=== PATIENT | female | born 2000 | race Caucasian/White ===

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

== ENCOUNTER → 2018-02-12 | Outpatient (CLI) | payer OTHER ==
[2018-02-12 08:36] LABS: HEMATOCRIT 34.1 % (36.0-47.0); HEMOGLOBIN 11.3 g/dl (12.0-15.5); MEAN CORPUSCULAR HEMOGLOBIN 31.2 pg (27.0-33.0); MEAN CORPUSCULAR HGB CONC 33.1 g/dl (32.0-36.5); MEAN CORPUSCULAR VOLUME 94.2 fl (80.0-96.0); PLATELET COUNT, AUTOMATED 365 10^3/uL (150-450); RED BLOOD COUNT 3.62 10^6/uL (4.00-5.40); RED CELL DISTRIBUTION WIDTH 12.9 % (11.5-14.5); WHITE BLOOD COUNT 11.8 10^3/uL (4.0-10.0)
[2018-02-12 08:59] LABS: GLUCOSE CHALLENGE TEST 1 HOUR 124 MG/DL (LESS THAN 140)
== END ==
LOC: M LAB 07:06
DX: Z34.82 Encounter for supervision of other normal pregnancy, second trimester (principal); Z36.89 Encounter for other specified antenatal screening

== ENCOUNTER 2018-03-10 18:24 | Outpatient (CLI) | payer OTHER ==
[2018-03-10 20:36] LABS: APPEARANCE, URINE HAZY (CLEAR); BACTERIA, URINE AUTO NEGATIVE (NEGATIVE); BILIRUBIN, URINE AUTO NEGATIVE (NEGATIVE); BLOOD, URINE BLOOD NEGATIVE (NEGATIVE); COLOR, URINE YELLOW (YELLOW); GLUCOSE, URINE (UA) AUTO NEGATIVE (NEGATIVE); KETONE, URINE AUTO 1+ mg/dL (NEGATIVE); LEUKOCYTE ESTERASE, URINE AUTO NEGATIVE (NEGATIVE); MUCUS, URINE SMALL (NEGATIVE); NITRITE, URINE AUTO NEGATIVE (NEGATIVE); PROTEIN, URINE AUTO 1+ mg/dL (NEGATIVE); RBC, URINE AUTO 2 /HPF (0-3); SPECIFIC GRAVITY URINE AUTO 1.026 (1.002-1.035); SQUAMOUS EPITHELIAL CELL UR AU 6 /HPF (0-6); WBC, URINE AUTO 2 /HPF (0-3)
[2018-03-10] MEDS: ONDANSETRON 4MG/2ML VIAL (J2405) IV (21:06)
== END 2018-03-10 21:20 | disposition home or self-care (01) ==
LOC: M LDO 18:24
DX: O26.893 Other specified pregnancy related conditions, third trimester (principal); R51 Headache; O21.8 Other vomiting complicating pregnancy; Z3A.32 32 weeks gestation of pregnancy
CPT/HCPCS: J2405

== ENCOUNTER → 2018-04-08 | Outpatient (REF) | payer OTHER | LOC: M LAB REF 17:33 | DX: Z34.03 Encounter for supervision of normal first pregnancy, third trimester (principal); Z36.85 Encounter for antenatal screening for Streptococcus B | CPT/HCPCS: 87081 ==

== ENCOUNTER 2018-05-06 18:16 | Inpatient (IN) | payer OTHER ==
[2018-05-06] MEDS: LR 1,000 ML IV (18:22)
[2018-05-06] MEDS ORDERED: OXYTOCIN DRIP 30 UNITS in APPROPRIATE DILUENT 1 EA IV (18:30)
[2018-05-06 19:30] LABS: HEMATOCRIT 32.6 % (36.0-47.0); HEMOGLOBIN 11.1 g/dl (12.0-15.5); MEAN CORPUSCULAR HEMOGLOBIN 30.4 pg (27.0-33.0); MEAN CORPUSCULAR VOLUME 89.3 fl (80.0-96.0); PLATELET COUNT, AUTOMATED 348 10^3/uL (150-450); RED BLOOD COUNT 3.65 10^6/uL (4.00-5.40); WHITE BLOOD COUNT 12.6 10^3/uL (4.0-10.0)
[2018-05-07] MEDS ORDERED: PROMETHAZINE INJ 25 MG/ML VIAL (J2550) As Ordered (00:16)
[2018-05-07] MEDS ORDERED: BUTORPHANOL 2 MG/ML INJ (J0595) As Ordered (00:16)
[2018-05-07] MEDS: PROMETHAZINE INJ 25 MG/ML VIAL (J2550) IV (00:35)
[2018-05-07] MEDS: BUTORPHANOL 2 MG/ML INJ (J0595) IV (00:38)
[2018-05-07] MEDS ORDERED: FENTANYL 2MCG/ML ROPIVACAINE 0.2% IN 0.9% NACL 200ML IVBAG As Ordered (03:28)
[2018-05-07] MEDS: FENTANYL/ROPIVACAINE/NACL BAG 200 ML EPIDURAL (05:45)
[2018-05-07] MEDS ORDERED: ONDANSETRON 4MG/2ML VIAL (J2405) IV (05:45)
[2018-05-07] MEDS ORDERED: NALOXONE INJ 0.4 MG/1 ML VIAL (J2310) IV (05:45)
[2018-05-07] MEDS ORDERED: ePHEDrine SULFATE 25 MG/5 ML(5MG/ML) SYRINGE IV (05:45)
[2018-05-07] MEDS ORDERED: EPIDURAL COMMENT XX (05:45)
[2018-05-07] MEDS ORDERED: REFRIGERATOR IV KEYS XX (05:45)
[2018-05-07] MEDS ORDERED: EPIDURAL/PCA KEYS XX (05:45)
[2018-05-07] MEDS ORDERED: LACTATED RINGER'S 1000 ML IV (05:45)
[2018-05-07] MEDS ORDERED: diphenhydrAMINE INJ 50MG/ML VIAL (J1200) IV (05:45)
[2018-05-07] MEDS ORDERED: OXYTOCIN DRIP 30 UNITS in APPROPRIATE DILUENT 1 EA IV (13:21)
[2018-05-07] MEDS ORDERED: MEASLES,MUMPS,RUBELLA VACCINE INJ (MMR-II) (90707) SC (13:30)
[2018-05-07] MEDS ORDERED: DOCUSATE SODIUM 100 MG CAP PO (13:30)
[2018-05-07] MEDS ORDERED: ACETAMINOPHEN 500 MG TAB PO (13:30)
[2018-05-07] MEDS ORDERED: RHOGAM 300 MCG (1500 IU) INJ (J2790) IM (13:30)
[2018-05-07] MEDS ORDERED: ANUSOL HC CREAM 30GM TOP ×2 (13:30→13:45)
[2018-05-07] MEDS ORDERED: DIBUCAINE 1% OINTMENT 30GM TOP ×2 (13:30→13:45)
[2018-05-07] MEDS ORDERED: METHYLERGONOVINE MALEATE 0.2 MG TAB PO ×2 (13:30→13:45)
[2018-05-07] MEDS: OXYTOCIN DRIP 30 UNITS in APPROPRIATE DILUENT 1 EA IV (13:50)
[2018-05-07] MEDS: RHOGAM 300 MCG (1500 IU) INJ (J2790) IM (15:28)
[2018-05-08] MEDS: PRENATAL VITAMINS CHEWABLE TABLET PO (08:27)
[2018-05-08] MEDS: ADACEL/BOOSTRIX VACCINE (DIPHTH/PERTUSS/ACELL/TETANUS)0.5ML SYR (90715) IM (08:28)
[2018-05-08] MEDS: INFLUENZA QUADRIVALENT PF VACCINE 0.5ML SYRINGE (90686) IM (08:29)
[2018-05-08] MEDS ORDERED: PRENATAL VITAMINS CHEWABLE TABLET PO (09:00)
[2018-05-08] MEDS: ACETAMINOPHEN 500 MG TAB PO (19:48)
[2018-05-08] MEDS: DOCUSATE SODIUM 100 MG CAP PO (19:48)
[2018-05-09] MEDS: PRENATAL VITAMINS CHEWABLE TABLET PO (09:08)
[2018-05-09] MEDS: MEASLES,MUMPS,RUBELLA VACCINE INJ (MMR-II) (90707) SC (17:17)
== END 2018-05-09 17:35 | disposition home or self-care (01) | DRG 775 ==
LOC: M LDI 18:16 → M OBS 05-07 15:09
PROVIDERS: Advanced Practice Midwife
PROC: 3E033VJ Introduction of Other Hormone into Peripheral Vein, Percutaneous Approach (ICD-10-PCS; 2018-05-06)
PROC: 10907ZC Drainage of Amniotic Fluid, Therapeutic from Products of Conception, Via Natural or Artificial Opening (ICD-10-PCS; 2018-05-06)
PROC: 10E0XZZ Delivery of Products of Conception, External Approach (ICD-10-PCS; principal; 2018-05-07)
PROC: 0HQ9XZZ Repair Perineum Skin, External Approach (ICD-10-PCS; 2018-05-07)
DX: O48.0 Post-term pregnancy (principal); Z37.0 Single live birth; Z3A.40 40 weeks gestation of pregnancy; Z88.6 Allergy status to analgesic agent; Z88.8 Allergy status to other drugs, medicaments and biological substances; O77.0 Labor and delivery complicated by meconium in amniotic fluid; O70.0 First degree perineal laceration during delivery; O32.6XX0 Maternal care for compound presentation, not applicable or unspecified

== ENCOUNTER 2019-03-13 14:21 | Emergency (ER) | payer OTHER ==
[~2019-03-13] VITALS: Ht 160 cm; Wt 69.4 kg
[2019-03-13 14:21] VITALS: BP 110/68
[~2019-03-13 14:21] MED LIST: AMOX500C PO; BENA25CA4 PO; COLA100C5 PO; MAPA500T2 PO; PRENTAB9 PO; TESS100C PO
[2019-03-13 15:12] LABS: HEMATOCRIT 37.9 % (36.0-47.0); HEMOGLOBIN 12.7 g/dl (12.0-15.5); MEAN CORPUSCULAR HGB CONC 33.5 g/dl (32.0-36.5); MEAN CORPUSCULAR VOLUME 89.6 fl (80.0-96.0); PLATELET COUNT, AUTOMATED 419 10^3/uL (150-450); RED BLOOD COUNT 4.23 10^6/uL (4.00-5.40); WHITE BLOOD COUNT 9.5 10^3/uL (4.0-10.0)
[2019-03-13 15:32] LABS: AMPHETAMINES LEVEL URINE NEGATIVE (NEGATIVE); BARBITURATES URINE NEGATIVE (NEGATIVE); BENZODIAZEPINES URINE NEGATIVE (NEGATIVE); CANNABINOIDS URINE NEGATIVE (NEGATIVE); COCAINE METABOLITE URINE NEGATIVE (NEGATIVE); METHADONE URINE NEGATIVE (NEGATIVE); OPIATES URINE NEGATIVE (NEGATIVE); PHENCYCLIDINE URINE NEGATIVE (NEGATIVE)
[2019-03-13 15:33] LABS: HCG, SERUM QUALITATIVE NEGATIVE (NEGATIVE)
[2019-03-13 15:43] LABS: ACETAMINOPHEN LEVEL < 2.0 UG/ML (10.0-30.0); ALBUMIN 3.3 GM/DL (3.2-5.2); ALT/SGPT 19 U/L (12-78); BILIRUBIN,DIRECT 0.1 MG/DL (0.0-0.2); BILIRUBIN,TOTAL 0.2 MG/DL (0.2-1.0); BLOOD UREA NITROGEN 16 MG/DL (7-18); CARBON DIOXIDE LEVEL 29 MEQ/L (21-32); CHLORIDE LEVEL 108 MEQ/L (98-107); CREATININE FOR GFR 0.86 MG/DL (0.55-1.30); ETHYL ALCOHOL (ETHANOL) < 0.003 % (0.000-0.010); GLUCOSE, FASTING 76 MG/DL (70-100); POTASSIUM SERUM 3.9 MEQ/L (3.5-5.1); SALICYLATE LEVEL < 1.7 MG/DL (5.0-30.0); SODIUM LEVEL 142 MEQ/L (136-145); TOTAL PROTEIN 7.3 GM/DL (6.4-8.2)
== END 2019-03-13 17:29 | disposition home or self-care (01) ==
LOC: M ED 14:21
DX: F33.9 Major depressive disorder, recurrent, unspecified (principal); F43.20 Adjustment disorder, unspecified; J45.909 Unspecified asthma, uncomplicated; Z79.899 Other long term (current) drug therapy; Z88.8 Allergy status to other drugs, medicaments and biological substances
CPT/HCPCS: 36415; 80048; 80076; 80307; 84443; 84703; 85027; 99284; G0480

== ENCOUNTER 2019-03-14 19:32 | Inpatient (IN) | payer OTHER ==
[~2019-03-14] VITALS: Ht 162.6 cm; Wt 69.5 kg
[2019-03-14 20:15] LABS: HEMATOCRIT 39.9 % (36.0-47.0); HEMOGLOBIN 13.3 g/dl (12.0-15.5); MEAN CORPUSCULAR HGB CONC 33.3 g/dl (32.0-36.5); MEAN CORPUSCULAR VOLUME 89.9 fl (80.0-96.0); PLATELET COUNT, AUTOMATED 448 10^3/uL (150-450); RED BLOOD COUNT 4.44 10^6/uL (4.00-5.40); WHITE BLOOD COUNT 9.9 10^3/uL (4.0-10.0)
[2019-03-14 20:33] LABS: HCG, SERUM QUALITATIVE NEGATIVE (NEGATIVE)
[2019-03-14 20:37] LABS: AMPHETAMINES LEVEL URINE NEGATIVE (NEGATIVE); BARBITURATES URINE NEGATIVE (NEGATIVE); BENZODIAZEPINES URINE NEGATIVE (NEGATIVE); CANNABINOIDS URINE NEGATIVE (NEGATIVE); COCAINE METABOLITE URINE NEGATIVE (NEGATIVE); METHADONE URINE NEGATIVE (NEGATIVE); OPIATES URINE NEGATIVE (NEGATIVE); PHENCYCLIDINE URINE NEGATIVE (NEGATIVE)
[2019-03-14 20:49] LABS: ACETAMINOPHEN LEVEL < 2.0 UG/ML (10.0-30.0); ALBUMIN 3.4 GM/DL (3.2-5.2); ALT/SGPT 19 U/L (12-78); BILIRUBIN,DIRECT 0.1 MG/DL (0.0-0.2); BILIRUBIN,TOTAL 0.4 MG/DL (0.2-1.0); BLOOD UREA NITROGEN 14 MG/DL (7-18); CALCIUM LEVEL 8.3 MG/DL (8.5-10.1); CARBON DIOXIDE LEVEL 28 MEQ/L (21-32); CHLORIDE LEVEL 104 MEQ/L (98-107); CREATININE FOR GFR 0.88 MG/DL (0.55-1.30); ETHYL ALCOHOL (ETHANOL) < 0.003 % (0.000-0.010); GLUCOSE, FASTING 93 MG/DL (70-100); POTASSIUM SERUM 3.7 MEQ/L (3.5-5.1); SALICYLATE LEVEL < 1.7 MG/DL (5.0-30.0); SODIUM LEVEL 139 MEQ/L (136-145); TOTAL PROTEIN 7.6 GM/DL (6.4-8.2)
[2019-03-15] MEDS ORDERED: MAALOX 30 ML SUSP *UDC PO PRN (12:45)
[2019-03-15] MEDS ORDERED: ACETAMINOPHEN TAB 650MG DOSE (2X325MG) PO PRN (12:45)
[2019-03-15] MEDS ORDERED: MOM 30ML SUSPENSION UDC PO PRN (12:45)
[2019-03-15] MEDS ORDERED: LORazepam 1 MG TAB PO PRN (12:45)
[2019-03-15 13:44] VITALS: BP 110/67
[2019-03-15] MEDS ORDERED: hydrOXYzine 25 MG TAB PO PRN (19:00)
--- NOTE | 2019-03-15 19:30 | HPE ---
DATE OF ADMISSION: 03/15/2019 HISTORY OF THE PRESENT ILLNESS: Please refer to psychiatric history and evaluation for further details on this admission. This examination and history is intended for medical issues which may need treatment, followup, or consult on this 18-year-old female. DATE OF SERVICE: 03/15/2019. ALLERGIES: ASPIRIN, SODIUM BICARBONATE, CITRIC ACID. PRIMARY CARE PROVIDER: [place] Pamela. SOCIAL HISTORY: She is . Her is a soldier, currently stationed at [employer]. She has a [id number] girl. Ethyl alcohol (EtOH): None. Smokes: None. Recreational drug use: None. PAST MEDICAL HISTORY: Asthma, depression. PAST SURGICAL HISTORY: Negative. HOME MEDICATIONS: None. FAMILY HISTORY: Mother is alive and well. Father is alive and well. LABORATORY STUDIES: CBC was normal. Electrolytes were normal. BUN was 14, creatinine was 0.88, beta hCG was negative. Urine for toxicology was negative. REVIEW OF SYSTEMS: Ten-systems review was done, was unremarkable. She had complained of only a very few superficial lacerations left shoulder. PHYSICAL EXAMINATION: A 18-year-old cooperative female in no acute distress. Height 64 inches, weight 69.55 kilograms, body mass index (BMI) 26.3. Vital Signs: Blood pressure 104/55, pulse 85, respirations 18, temperature 98, oxygen saturation (O2 sat) 97% on room air. The patient is alert and oriented times three. Pupils equal and reactive to light. Extraocular movements intact. Cornea and sclerae clear. Conjunctivae is normal. No facial asymmetry. Pharynx: Tongue and gums pink and moist. Tongue is midline. Neck is supple without lymphadenopathy. No thyromegaly. No goiter. Carotids 2+ without bruit. Chest is clear to auscultation without wheeze or retractions. Heart is regular. Abdomen benign. Bowel sounds positive. Genital/Rectal: Not done. Extremities show equal strength, full range of motion. No cyanosis, clubbing or edema. Peripheral pulses equal and palpable bilaterally. Skin is warm and dry. Very few, 3 or 4, very light superficial lacerations left shoulder. No redness or drainage. IMPRESSION AND PLAN: Psychiatric plan per psychiatry. No acute medical issues.
[2019-03-15] MEDS: traZODone 50 MG TAB PO PRN (20:50)
[2019-03-16 06:35] VITALS: BP 114/58
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
[2019-03-16] MEDS ORDERED: buPROPion **XL** TABLET 150MG (WELLBUTRIN XL) PO ONE (12:30)
[2019-03-16 16:27] VITALS: BP 118/74
[2019-03-16] MEDS: traZODone 50 MG TAB PO PRN (21:07)
[2019-03-17 06:33] VITALS: BP 114/58
[2019-03-17] MEDS: buPROPion **XL** TABLET 150MG (WELLBUTRIN XL) PO SCH (08:31)
--- NOTE | 2019-03-17 09:10 | MHIPNPDOC ---
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 She reports that she was concerned about her safety issue of engaging in self-harm behavior, namely cutting on her arms and had noted that her would be away at working and her daughter would be at day care where she felt she would be socially isolated and would have difficulties attending to her needs. She described that she was having difficulties with low mood, loss of Interest, insomnia and difficulties with concentration and focus. She further described she had difficulties with a history of trauma as well as intrusive thoughts and nightmares reportedly related to them. She describes that she has been attempting to get therapy as an outpatient, but that has become problematic as she has encountered the stressor of her being ambivalent about continuing their relationship. She describes that she feels this would be a fairly negative thing for her as she has a fairly young child and generally is unable to work at this time. Interval History The patient is met with today. She reports she is doing well, feeling "better" and has come up with a positive action plan for how to cope with the various contingencies in her relationship. She has been going to group, no behavioral problems and generally social and amenable on the unit. She has not been demonstrating any suicidal or homicidal ideation to nursing staff and has been attending to her needs well. She reports improved fatigue, mood, loss of interest and concentration, focus since the start of the Wellbutrin with no side effects at this time. Review Of Systems Denies any palpitations, GI upset or headaches associated with Wellbutrin. Psychotherapy None on this visit. Vital Signs Reviewed. Mental Status Examination General: Well dressed with good hygiene Speech: Spontaneous and fluid Thought processes: Linear and logical MSK: Smooth and coordinated gait, no signs of tremors or involuntary orofacial movements Thought content: Future orientated Abstract reasoning, and computation: Intact Description of associations: Intact Description of abnormal or psychotic thoughts: Denies any suicidal or homicidal ideation. Denies any auditory or visual hallucinations. Does not appear to be responding to internal stimuli. Does not appear to be endorsing any bizarre or paranoid ideation. Judgment: fair Insight: fair Orientation: Alert and orientated 3 Cognition: Grossly normal Recent and remote memory: Intact Attention span and concentration: Intact Fund of knowledge: Adequate Mood: "okay" Affect: Euthymic with a full range Diagnoses Unspecified depressive disorder. Unspecified trauma stress related disorder. Rule out adjustment versus personality disorder such as borderline versus cluster C. Assessment and Plan Continue Wellbutrin 150 mg extended-release daily, likely discharge tomorrow. Improvement notable. Disposition Likely discharge tomorrow. Time Spent 15 minutes face to face. Friday Vital Signs Vital Signs Date Time Temp Pulse Resp B/P (MAP) Pulse Ox O2 Delivery O2 Flow Rate FiO2 03/17/19 06:33 98.3 87 12 114/58 (76) 03/15/19 13:44 98 03/15/19 08:50 Room Air Current Medications Current Medications Medications (Trade) Dose Ordered Sig/Lynette Route PRN Reason Start Time Stop Time Status Last Admin Dose Admin Acetaminophen (Tylenol Tab) 650 mg Q6HP PRN PO HEADACHE or DISCOMFORT 03/15/19 12:45 Al Hydrox/Mg Hydrox/Simethicone (Mylanta) 30 ml Q4HP PRN PO HEARTBURN/INDIGESTION 03/15/19 12:45 Bupropion HCl (Wellbutrin Xl) 150 mg QAM PO 03/17/19 09:00 03/17/19 08:31 Home Med (Med Rec Complete!) ASDIRECTED XX 03/15/19 12:00 03/15/19 12:00 DC Hydroxyzine HCl (Atarax) 25 mg Q6HP PRN PO ANXIETY/AGITATION 03/15/19 19:00 Lorazepam (Ativan) 1 mg Q6HP PRN PO ANXIETY/AGITATION 03/15/19 12:45 Magnesium Hydroxide (Milk Of Magnesia) 30 ml DAILYPRN PRN PO CONSTIPATION 03/15/19 12:45 Trazodone HCl (Desyrel) 50 mg QHSP PRN PO INSOMNIA 03/15/19 12:45 03/16/19 21:07 Allergies Coded Allergies: aspirin (Verified Allergy, Intermediate, hives, 03/13/19) citric acid (Verified Allergy, Intermediate, hives, 03/13/19) sodium bicarbonate (Verified Allergy, Intermediate, hives, 03/13/19) JENNIFFER NAVARRO DO Mar 17, 2019 09:10
[2019-03-17 18:00] VITALS: BP 113/71
[2019-03-17] MEDS: traZODone 50 MG TAB PO PRN (22:38)
[2019-03-18 06:35] VITALS: BP 107/57
[2019-03-18] MEDS: buPROPion **XL** TABLET 150MG (WELLBUTRIN XL) PO SCH (08:29)
--- NOTE | 2019-03-18 09:48 | MHDSPDOC ---
[facility] Discharge Summary Discharge Summary DATE OF ADMISSION: Mar 15, 2019 at 12:37 DATE OF DISCHARGE: 03/18/19 Date of Service: 03/18/2019 Diagnoses Unspecified depressive disorder. Unspecified trauma stress related disorder. Rule out adjustment versus personality disorder such as borderline versus cluster C. 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 She reports that she was concerned about her safety issue of engaging in self-harm behavior, namely cutting on her arms and had noted that her would be away at working and her daughter would be at day care where she felt she would be socially isolated and would have difficulties attending to her needs. She described that she was having difficulties with low mood, loss of Interest, insomnia and difficulties with concentration and focus. She further described she had difficulties with a history of trauma as well as intrusive thoughts and nightmares reportedly related to them. She describes that she has been attempting to get therapy as an outpatient, but that has become problematic as she has encountered the stressor of her being ambivalent about continuing their relationship. She describes that she feels this would be a fairly negative thing for her as she has a fairly young child and generally is unable to work at this time. Consultants Involved Hospitalist/PCP screening Treatment and Progress On The Unit The patient was admitted to the unit and subsequently observed. She reported that her suicidal thoughts had resolved upon presentation. Started Wellbutrin 150 mg daily with positive effects. Patient tolerated medications well, attended groups well was socially and amenable on the unit. No major behavioral problems noted. Improved mood, fatigue and loss of interest. Demonstrated on the unit with no concerning suicidal, homicidal ideation noted. Was able to attend to her needs well. Did have stressor of reporting he wanted to divorce however, patient tolerated it well. Reported that she did not have any suicidal thoughts after experiencing that stressor. She was noted to be fairly positive and upbeat in the majority of her admission. She requested to leave and at that time did not meet involuntary criteria that's due to the aforementioned. Lack of suicidality or severe impairment and did not look for further voluntary admission and thus was discharged in good jennifer. Discharge Assessment 18 year old woman with a history of depression and possible trauma symptoms is treated with low dose Wellbutrin with positive effects after multiple stressors, resolving her suicidal ideation and depression well. Mental Status Examination General: Well dressed with good hygiene Speech: Spontaneous and fluid Thought processes: Linear and logical MSK: Smooth and coordinated gait, no signs of tremors or involuntary orofacial movements Thought content: Future orientated Abstract reasoning, and computation: Intact Description of associations: Intact Description of abnormal or psychotic thoughts: Denies any suicidal or homicidal ideation. Denies any auditory or visual hallucinations. Does not appear to be responding to internal stimuli. Does not appear to be endorsing any bizarre or paranoid ideation. Judgment: fair Insight: fair Orientation: Alert and orientated 3 Cognition: Grossly normal Recent and remote memory: Intact Attention span and concentration: Intact Fund of knowledge: Adequate Mood: "okay" Affect: Euthymic with a full range Follow Up The social work team worked during the predischarge meeting in order to evaluate for further issues of lethality address them fully before discharge. They worked on safety planning with the patient's family members in order to ensure that the patient will have a safe and effective discharge. Time Spent The amount of time spent in the coordination of care for this patient was approximately 20 minutes. Vital Signs/I&Os Vital Signs Date Time Temp Pulse Resp B/P (MAP) Pulse Ox O2 Delivery O2 Flow Rate FiO2 03/18/19 06:35 99.5 92 12 107/57 (74) 03/15/19 13:44 98 03/15/19 08:50 Room Air Medications Scheduled Bupropion Hcl (Bupropion Xl) 150 Mg Tab.er.24h, 150 MG PO QAM for mood for 7 Days, #7 Allergies Coded Allergies: aspirin (Verified Allergy, Intermediate, hives, 03/13/19) citric acid (Verified Allergy, Intermediate, hives, 03/13/19) sodium bicarbonate (Verified Allergy, Intermediate, hives, 03/13/19) JENNIFFER NAVARRO DO Mar 18, 2019 09:48
[2019-03-18] MEDS ORDERED: BUPR150T3 PO (10:40)
== END 2019-03-18 11:40 | disposition home or self-care (01) | DRG 881 ==
LOC: M ED 19:32 → M ED INP 03-15 12:37 → M PSY 03-15 13:52
PROVIDERS: ADMIT Psychiatry & Neurology Psychiatry; ATTEND Psychiatry & Neurology Addiction Medicine
DX: F32.9 Major depressive disorder, single episode, unspecified (principal); F60.89 Other specific personality disorders; F43.20 Adjustment disorder, unspecified; F60.3 Borderline personality disorder; Z79.899 Other long term (current) drug therapy; Z63.0 Problems in relationship with spouse or partner